=== PATIENT | male | born 1970 | race Caucasian/White ===

== ENCOUNTER 2018-08-12 00:59 | Emergency (ER) | payer MEDICAID, OTHER ==
[2018-08-12] MEDS ORDERED: IPRATROPIUM/ALBUTEROL 3 ML DEYVIAL IH ONE (02:24)
--- NOTE | 2018-08-12 02:28 | EDPHY ---
H & P Stated Complaint: PROD COUGH, COUGHING FITS, BODY ACHES,SOB, HAS HAD COLD X5 WKS Time Seen by Provider: 08/12/18 02:12 HPI/ROS: HPI The patient presents with cough which has been present for the last 5 weeks which initially was productive of a clear sputum has and now is dry and associated with wheezing. The cough is constant, can be worse at night, is moderate in severity and he has had episodes of post-tussive emesis. He has had intermittent subjective fevers with this. He has a sore throat as well. He denies any sick contacts. He does not have chest pain or shortness of breath. He does smoke half a pack of cigarettes for the last 25 years. REVIEW OF SYSTEMS 10 systems were reviewed and negative with the exception of the elements mentioned in the history of present illness. PMHx: Hypothyroidism, recently relocated to [place] with no PMD locally Soc Hx: 1/2 pack cigarette smoker for the last 25 years PHYSICAL General Appearance: Alert, no distress Eyes: Pupils equal and round no pallor or injection ENT, Mouth: Mucous membranes moist, posterior pharynx is injected without exudate Respiratory: There are no retractions, expiratory wheezes with coarse breath sounds throughout all lung osborne Cardiovascular: Regular rate and rhythm Gastrointestinal: Abdomen is soft and non-tender, no masses, bowel sounds normal Neurological: A&O, moves all extremities Skin: Warm and dry, no rashes Musculoskeletal: Neck is supple non tender Extremities: symmetrical, full range of motion Psychiatric: Patient is oriented X 3, there is no agitation Source: Patient Exam Limitations: No limitations - Personal History Current Tetanus/Diphtheria Vaccine: Unsure - Medical/Surgical History Hx Asthma: No Hx Chronic Respiratory Disease: No Hx Diabetes: No Hx Cardiac Disease: No Hx Renal Disease: No Hx Cirrhosis: No Hx Alcoholism: No Hx HIV/AIDS: No Hx Splenectomy or Spleen Trauma: No Other PMH: hypothyroid, MANDIBLE RECONSTUCTION - Social History Smoking Status: Current every day smoker Constitutional: Initial Vital Signs Temperature (C) 36.9 C 08/12/18 01:02 Heart Rate 100 08/12/18 01:02 Respiratory Rate 22 H 08/12/18 01:02 Blood Pressure 122/69 H 08/12/18 01:02 O2 Sat (%) 96 08/12/18 01:02 O2 Delivery Mode Room Air Allergies/Adverse Reactions: erythromycin base Allergy (Verified 08/12/18 01:02) Home Medications: Medication Instructions Recorded Levothyroxine [Synthroid] 137 mcg PO DAILY06 03/10/15 Doxycycline Hyclate 100 mg PO BID 7 Days tablet 08/12/18 predniSONE 60 mg PO DAILY #15 tab 08/12/18 Medical Decision Making - Diagnostics Imaging Results: Chest x-ray two view shows possible right lower lobe infiltrate which is faint, no cardiomegaly, interpreted by me, radiology interpretation is pending. Imaging: I viewed and interpreted images myself Differential Diagnosis: 48-year-old male with longstanding smoking history presents with 5 weeks of cough now associated with wheeze and sore throat. On exam, he is not hypoxic though coughing frequently and appears uncomfortable. Differential diagnosis includes new onset COPD with exacerbation, pneumonia, influenza, viral URI. In the emergency department, patient received DuoNeb. This caused significant improvement in his symptoms. Chest x-ray showed possible right lower lobe infiltrate. Labs were unremarkable, flu swab was negative. He was treated here with doxycycline and prednisone for likely bronchitis, possible underlying mild COPD. I have explained to him the importance of smoking cessation. He will be discharged from the emergency room as his vital signs are normal and he is feeling better. He is to follow up with primary care in the next few days. - Data Points Laboratory Results: Laboratory Results 08/12/18 02:45 08/12/18 02:45 08/12/18 08/12/18 08/12/18 02:45 02:45 01:25 WBC 8.15 10^3/uL 10^3/uL (3.80-9.50) RBC 4.85 10^6/uL 10^6/uL (4.40-6.38) Hgb 15.1 g/dL g/dL (13.7-17.5) Hct 44.8 % % (40.0-51.0) MCV 92.4 fL fL (81.5-99.8) MCH 31.1 pg pg (27.9-34.1) MCHC 33.7 g/dL g/dL (32.4-36.7) RDW 12.8 % % (11.5-15.2) Plt Count 281 10^3/uL 10^3/uL (150-400) MPV 9.1 fL fL (8.7-11.7) Neut % (Auto) 55.3 % % (39.3-74.2) Lymph % (Auto) 24.5 % % (15.0-45.0) Gregory % (Auto) 17.2 % H % (4.5-13.0) Eos % (Auto) 2.3 % % (0.6-7.6) Baso % (Auto) 0.6 % % (0.3-1.7) Nucleat RBC Rel Count 0.0 % % (0.0-0.2) Absolute Neuts (auto) 4.50 10^3/uL 10^3/uL (1.70-6.50) Absolute Lymphs (auto) 2.00 10^3/uL 10^3/uL (1.00-3.00) Absolute Monos (auto) 1.40 10^3/uL H 10^3/uL (0.30-0.80) Absolute Eos (auto) 0.19 10^3/uL 10^3/uL (0.03-0.40) Absolute Basos (auto) 0.05 10^3/uL 10^3/uL (0.02-0.10) Absolute Nucleated RBC 0.00 10^3/uL 10^3/uL (0-0.01) Immature Gran % 0.1 % % (0.0-1.1) Immature Gran # 0.01 10^3/uL 10^3/uL (0.00-0.10) Sodium 140 mEq/L mEq/L (135-145) Potassium 3.6 mEq/L mEq/L (3.5-5.2) Chloride 105 mEq/L mEq/L (97-110) Carbon Dioxide 26 mEq/l mEq/l (22-31) Anion Gap 9 mEq/L mEq/L (6-14) BUN 12 mg/dL mg/dL (7-23) Creatinine 0.9 mg/dL mg/dL (0.7-1.3) Estimated GFR > 60 Glucose 126 mg/dL H mg/dL (70-100) Calcium 9.4 mg/dL mg/dL (8.5-10.4) Nasal Influenza A PCR NEGATIVE FOR FLU A (NEGATIVE) Nasal Influenza B PCR NEGATIVE FOR FLU B (NEGATIVE) Medications Given: Discontinued Medications Albuterol/Ipratropium (Duoneb) 3 ml IH EDNOW ONE Stop: 08/12/18 02:25 Last Admin: 08/12/18 02:40 Dose: 3 ml Departure - Departure Disposition: Home, Routine, Self-Care Clinical Impression: Cough Condition: Good Instructions: Acute Bronchitis (ED) Referrals: [facility],. [Clinic] - As per Instructions Prescriptions: Doxycycline Hyclate 100 mg PO BID 7 Days tablet predniSONE 60 mg PO DAILY #15 tab
[2018-08-12 02:58] LABS: PLATELET COUNT 281 10^3/uL (150-400)
[2018-08-12] MEDS ORDERED: DOXYCYCLINE 100 MG PREPACK#2 BTL TAKEHOME ONE (03:32)
[2018-08-12] MEDS ORDERED: predniSONE 20 MG TAB PO ONE (03:32)
[2018-08-12] MEDS ORDERED: ALBUTEROL INH PREPACK MDI TAKEHOME ONE (03:32)
[2018-08-12] MEDS ORDERED: DOXYCYCLINE HYCLATE 100 MG CAP/TAB PO ONE (03:32)
[2018-08-12 03:53] VITALS: BP 124/72
== END 2018-08-12 03:52 | disposition home or self-care (01) ==
DX: R05 Cough (principal); F17.200 Nicotine dependence, unspecified, uncomplicated
CPT/HCPCS: J7512